=== PATIENT | male | born 1985 | race American Indian/Alaskan Native ===

== ENCOUNTER 2017-06-07 15:18 | Emergency (ER) | payer SELFPAY ==
[2017-06-07 16:12] VITALS: BP 157/97
== END 2017-06-07 17:32 | disposition left against medical advice (07) ==
LOC: ED 15:18
DX: R07.9 Chest pain, unspecified (principal); M25.519 Pain in unspecified shoulder; Z53.21 Procedure and treatment not carried out due to patient leaving prior to being seen by health care provider